=== PATIENT | male | born 1995 | race Caucasian/White ===

== ENCOUNTER 2016-09-26 13:03 | Emergency (ER) | payer SELFPAY ==
[2016-09-26 13:16] VITALS: BP 136/82
--- NOTE | 2016-09-26 13:45 | UC ---
Throat Pain/Nasal Brian HPI - HPI Summary HPI Summary: for weeks has had mild sore throat and trouble swallowing some dyspepsia no f/c no wt loss also painful pimple on left thigh - History of Current Complaint Chief Complaint: UCGeneralIllness Stated Complaint: SORE THROAT Time Seen by Provider: 09/26/16 13:27 Hx Obtained From: Patient Onset/Duration: Gradual Onset, Lasting Weeks Severity: Mild Pain Intensity: 2 Pain Scale Used: 0-10 Numeric Cough: None Associated Signs & Symptoms: Positive: Dysphagia - Epiglottits Risk Factors Epiglottis Risk Factors: Negative - Allergies/Home Medications Allergies/Adverse Reactions: Allergies Allergy/AdvReac Type Severity Reaction Status Date / Time No Known Allergies Allergy Verified 09/26/16 13:09 PMH/Surg Hx/FS Hx/Imm Hx Previously Healthy: Yes - Surgical History Surgical History: None - Family History Known Family History: Positive: Cardiac Disease - GF, Hypertension Negative: Diabetes - Social History Alcohol Use: Weekly Alcohol Amount: states no alcohol consumption now Substance Use Type: None Smoking Status (MU): Never Smoked Tobacco Type: Smokeless Tobacco Amount Used/How Often: 1 can daily Have You Smoked in the Last Year: Yes Review of Systems Constitutional: Negative Skin: Negative Eyes: Negative ENT: Sore Throat Respiratory: Negative Cardiovascular: Negative Gastrointestinal: Negative Genitourinary: Negative Motor: Negative Neurovascular: Negative Musculoskeletal: Negative Neurological: Negative Psychological: Negative All Other Systems Reviewed And Are Negative: Yes Physical Exam Triage Information Reviewed: Yes Appearance: Well-Appearing, No Pain Distress, Well-Nourished Vital Signs: Initial Vital Signs Temp 98.9 F 09/26/16 13:10 Pulse 74 09/26/16 13:10 Resp 16 09/26/16 13:10 BP 136/82 09/26/16 13:10 Pulse Ox 100 09/26/16 13:10 Vital Signs Reviewed: Yes Eyes: Positive: Conjunctiva Clear ENT: Positive: Hearing grossly normal, Pharyngeal erythema, TMs normal. Negative: Nasal drainage, TM bulging, TM dull, TM red, Tonsillar swelling, Tonsillar exudate, Trismus, Muffled/hoarse voice Dental Exam: Normal Neck: Positive: Supple, Nontender, No Lymphadenopathy Respiratory: Positive: Lungs clear, Normal breath sounds, No respiratory distress Cardiovascular: Positive: RRR, No Murmur Musculoskeletal: Positive: ROM Intact, No Edema Neurological: Positive: Alert Psychological Exam: Normal Throat Pain/Nasal Course/Dx - Differential Dx/Diagnosis Provider Diagnoses: suspected gastro esophagel reflux disease. left thigh pustule Discharge - Discharge Plan Condition: Stable Disposition: HOME Prescriptions: Mupirocin 2% OINT* [Bactroban 2 % Oint*] 1 applic TOPICAL TID #1 tube Omeprazole CAP* [Prilosec CAP* 20 MG] 20 mg PO BEDTIME #14 cap. Patient Education Materials: Gastroesophageal Reflux Disease (ED) Referrals: July Ann MD [Primary Care Provider] - 2 Weeks (recheck in 1-2 weeks) Additional Instructions: your throat symptoms may be due to acid reflux if not improving you may need referral to a specialist the spot on you leg appears to be due to an ingrown hair warm compresses and bactroban recheck if worsening Images Front/Back of Body, Lg (Emmet): 1 - small pustule with about 1 cm ring of erthyema
== END 2016-09-26 13:53 | disposition home or self-care (01) ==
LOC: UCCORT 13:03
DX: L08.9 Local infection of the skin and subcutaneous tissue, unspecified (principal); Z72.0 Tobacco use
CPT/HCPCS: 99212; G0463

== ENCOUNTER 2018-04-02 10:13 | Emergency (ER) | payer BC ==
--- NOTE | 2018-04-02 10:24 | UC ---
Shoulder Pain HPI - HPI Summary HPI Summary: 23 yo male presents with RIGHT shoulder pain. He tells me that for the last 3 weeks he has had intermittent RIGHT shoulder pain that is only painful after using it for awhile or with lifting. Pain feels "in" the shoulder joint and is achy and sharp at times. He says that he thinks it started after arm wrestling a friend, but denies specific injury. He has not taken anything OTC for his symptoms. Pain is better with rest. Denies numbness or tingling. - History of Current Complaint Stated Complaint: SHOULDER PAIN Time Seen by Provider: 04/02/18 10:24 Hx Obtained From: Patient Onset/Duration: Gradual Onset Severity Initially: Mild Severity Currently: Mild Pain Intensity: 2 Pain Scale Used: 0-10 Numeric - Allergies/Home Medications Allergies/Adverse Reactions: Allergies Allergy/AdvReac Type Severity Reaction Status Date / Time No Known Allergies Allergy Verified 04/02/18 10:32 PMH/Surg Hx/FS Hx/Imm Hx - Additional Past Medical History Additional PMH: None - Surgical History Surgical History: None - Family History Known Family History: Positive: Cardiac Disease - GF, Hypertension Negative: Diabetes - Social History Occupation: Employed Full-time Lives: With Family Alcohol Use: Weekly Alcohol Amount: states no alcohol consumption now Substance Use Type: None Smoking Status (MU): Never Smoked Tobacco Type: Smokeless Tobacco Amount Used/How Often: 1 can daily Have You Smoked in the Last Year: Yes Review of Systems All Other Systems Reviewed And Are Negative: Yes Constitutional: Positive: Negative Skin: Positive: Negative Respiratory: Positive: Negative Cardiovascular: Positive: Negative Neurovascular: Positive: Negative Musculoskeletal: Positive: Other: - Right shoulder pain Neurological: Positive: Negative Psychological: Positive: Negative Physical Exam - Summary Physical Exam Summary: GENERAL: NAD. WDWN. No pain distress. SKIN: No rashes, sores, lesions, or open wounds. CHEST: No accessory muscle use. Breathing comfortably and in no distress. CV: Pulses intact radial and ulnar. Cap refill <2seconds MSK: RIGHT SHOULDER: Mild TTP at biceps tendon origin. FROM. Strength 5/5. No edema or obvious bony deformities. Negative apleys, empty can, solis-judit , neer, amaya, and yergason tests. NEURO: Alert. Sensations intact C4-T1 b/l. PSYCH: Age appropriate behavior. Triage Information Reviewed: Yes Vital Signs: Vital Signs: Temp Pulse Resp BP Pulse Ox 98.6 F 71 16 139/73 100 04/02/18 10:26 04/02/18 10:26 04/02/18 10:26 04/02/18 10:04/02/18 10:26 Vital Signs Reviewed: Yes Shoulder Course/Dx - Course Course Of Treatment: XR: IMPRESSION: NEGATIVE EXAM. Suspect tendinitis. Advised to try naproxen and will start him with physical therapy with a referral to [facility] if symptoms do not improve. - Differential Dx/Diagnosis Provider Diagnosis: Right shoulder tendinitis Discharge - Sign-Out/Discharge Documenting (check all that apply): Patient Departure All imaging exams completed and their final reports reviewed: Yes - Discharge Plan Condition: Stable Disposition: HOME Prescriptions: Naproxen [Naproxen 500 mg tab] 500 mg PO BID PRN #30 tablet.dr PEARL Reason: Pain Patient Education Materials: Shoulder Sprain (ED), Exercises for Shoulder Flexion and Extension (ED) Referrals: July Ann MD [Primary Care Provider] - [facility] [Provider Group] - If Needed Additional Instructions: If you develop a fever, shortness of breath, chest pain, new or worsening symptoms - please call your PCP or go to the ED. 1) Your XR today was normal 2) May take naproxen twice a day as needed for pain 3) Please schedule an appointment with physical therapy for further treatment of your shoulder pain 4) If your pain does not improve, please call [facility] at the number below to schedule an appointment for further evaluation - Billing Disposition and Condition Condition: STABLE Disposition: Home
[2018-04-02 10:32] VITALS: BP 139/73
== END 2018-04-02 11:08 | disposition home or self-care (01) ==
LOC: UCEAST 10:13
DX: M75.91 Shoulder lesion, unspecified, right shoulder (principal)
CPT/HCPCS: 99212; G0463